=== PATIENT | male | born 2005 | race Two or more races ===

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

== ENCOUNTER 2025-06-15 09:40 | Outpatient (OUT) | payer OTHER, SELFPAY ==
--- NOTE | 2025-06-15 09:44 | XR_ITS ---
The [place] [id number] Patient Name: YAIR MURCIA MRN: [id number] date: 2005 Sex: M Assigned Patient Location: RAD Current Patient Location: [facility] Accession/Order Number: [id number] Exam Date: 06/15/2025 09:50 Report Date: 06/15/2025 10:19 At the request of: LOS RODRIGEZ MD Procedure: XR knee LT 3V LEFT KNEE - 3 views COMPARISON: None CLINICAL DATA: Continued medial left knee pain since falling through [facility] 4 months ago AP, lateral and internal oblique views were obtained. No acute or healing fractures are identified. No dislocation is seen. There is no disproportionate joint space narrowing. There is squaring off of the articular margins at the posterior patella. There is trace amount joint fluid. No soft tissue swelling is seen. XR/XR knee LT 3V IMPRESSION: NO ACUTE BONY FINDINGS. Impression dictated by: Mariah Todd M.D. 06/15/2025 10:19 AM Dictation Location: [place] [address] Electronically authenticated by: [id number] Y Date: 06/15/2025 10:19
--- NOTE | 2025-06-15 09:44 | MR_ITS ---
[address] [address] Patient Name: YAIR MURCIA MRN: [id number] date: 2005 Sex: M Assigned Patient Location: [facility] Current Patient Location: [facility] Accession/Order Number: [id number] Exam Date: 06/15/2025 10:00 Report Date: 06/15/2025 13:39 At the request of: LOS RODRIGEZ MD Procedure: MR knee LT wo con MR knee LT wo con 06/15/2025 11:41 AM SIGNS AND SYMPTOMS: Torn Medial Meniscus PROTOCOL: Multiplanar multisequence MR images of the left knee without IV contrast COMPARISON: None. FINDINGS: Fluid: There is a small joint effusion.. Medial compartment: Medial meniscus: There is a horizontally oriented tear body of the medial meniscus which is nondisplaced. Medial collateral ligament: Intact. Medial femoral condyle cartilage: Preserved. Medial tibial plateau cartilage: Preserved. Lateral compartment: Lateral meniscus: Intact. Lateral collateral ligament: Intact. Lateral femoral condyle cartilage: Preserved. Lateral tibial plateau cartilage: Preserved. Posterolateral corner: Popliteus tendon: Intact. Popliteofibular ligament: Intact. Proximal tibiofibular joint: Preserved. Anterior compartment: Alignment: Normal. Quadriceps tendon: Intact. Patellar tendon: Intact. Retinaculum: Medial intact. Lateral intact. Patellar cartilage: Preserved. There is mild partial thickness chondromalacia along the lateral articular facet of the patella. Trochlea: Preserved.. Plica: None Hoffa fat pad: Normal Intercondylar compartment: Anterior cruciate ligament: Intact. Posterior cruciate ligament: Intact. Bones (other than subarticular marrow): Normal. Muscles: Normal. Vessels: Normal. Nerves: Normal. MR/MR knee LT wo con IMPRESSION: There is a horizontally oriented tear body of the medial meniscus which is nondisplaced. There is a small joint effusion. Mild partial thickness chondromalacia is noted along the lateral articular facet of the patella. Impression dictated by: Dc Wolff M.D. 06/15/2025 1:39 PM Dictation Location: [place] [address] Electronically authenticated by: [id number] Y Date: 06/15/2025 13:39
--- OUTSIDE RECORDS SUMMARY | 2025-06-15 09:44 | XMS_ITS | Clinical Summary ---
Author Organization [facility] Address [address] [place] [address] Care Team Providers Care Filler Spreader Name Role Phone Unavailable Primary Care Provider Unavailabl e Allergies Active AllergyReactionsCriticalityNoted DateCommentsBupropionMental Status Ymazda7303/09/2024 Loss of sleep Medications MedicationSigDispense QuantityRefillsLast FilledStart DateEnd DateStatus magnesium oxide 400 mg magnesium cap Indications:Tinnitus, bilateralTake 1 capsule by mouth once daily. 30 capsule ctive Vit B Cmplx 3-FA-Vit C-Biotin tablet Indications:Tinnitus, bilateralTake 1 tablet by mouth daily with breakfast. 30 tablet ctive Active Problems ProblemNoted DateDiagnosed DateTinnitus, tsbjfdmev62/18/2024 Social History Tobacco UseTypesPacks/DayYears UsedDateSmoking Tobacco: NeverSmokeless Tobacco: Never Tobacco Cessation:Counseling Given: Not Answered Area Deprivation IndexAnswerDate RecordedNational Score (1-100), lower number is lower jnhr388301/10/2024State Score (1-10), lower number is lower vugx05301/10/2024 Data from: https://www.neighborhoodatlas.medicine.[facility].edu/. Last address used for cgpz[address]/10/2024Sex and Gender InformationValueDate RecordedSex Assigned at BirthNot on fileLegal GatZwmi5710/17/2023 11:53 AM EDT Gender IdentityNot on fileSexual OrientationNot on file Plan of Treatment Health MaintenanceDue DateLast DoneCommentsPeds To Adult Transition Initial Umtxpuinzc11/15/2017Peds To Adult Transition Annual Dwoogxclhb29/15/2019HPV Vaccine (1 - Male 3-dose series)2020Meningococcal B Vaccine (1 of 2 - Standard)1Anxiety Nkfqyqnpf65/15/2023epression Irwueadkd52/15/2023HIV Eutyjstzd97/15/2023Hepatitis C Wrjummfjh25/15/2023ovid-19 Vaccine (1 - 2024- season)2025Influenza Vaccine (#1)/07/2006, 06/06/2006 DTaP,Tdap,Td Vaccine (7 - Td or Tdap), 04/05/2011, 11/18/2006, Additional history existsHepatitis B LstlvevMyqoinwao64/08/2006, 2005, 2005 Insurance * Guarantor: Toan Gifford TypeRelation to PatientDate of BirthPhone Billing AddressPersonal/PdneiiEntm2005 [address] [phone]
--- OUTSIDE RECORDS SUMMARY | 2025-06-15 09:44 | XMS_ITS | Clinical Summary ---
Author Organization [facility] Address [address] [place] [address] Care Team Providers Care Knuckler Name Role Phone Han Brambila MD Primary Care Provider [phone] Allergies Active AllergyReactionsCriticalityNoted UntbVtoqvkdqVjhmzvnyw52/06/2023 Other Reaction(s): foggy brain Medications No known medications Active Problems ProblemNoted DateDiagnosed DateRight-sided uqtvaaxd68/06/2023Ear fullness, right 07/10/2023Mass of left parotid gland07/10/2023 Family History Medical HistoryRelationNameCommentsNo Known ProblemsFatherHypertensionMother MelanomaNeg HxRelationNameStatusCommentsFatherAliveMotherAlive Social History Tobacco UseTypesPacks/DayYears UsedDateSmoking Tobacco: NeverSmokeless Tobacco: Never Tobacco Cessation:Counseling Given: Not Answered Alcohol UseStandard Drinks/WeekCommentsNot Currently0 (1 standard drink = 0.6 oz pure alcohol)Sex and Gender InformationValueDate RecordedSex Assigned at Not on fileLegal NwpGifs3410/17/2022 7:35 PM EDTGender IdentityNot on fileSexual OrientationNot on file Last Filed Vital Signs Vital SignReadingTime TakenCommentsBlood Pafgfrxm360/9301 2:43 PM EST Pulse--Temperature--Respiratory Rate--Oxygen Saturation--Inhaled Oxygen Concentration--Dbxzph68 kg (205 lb)09/02/2023 2:43 PM ZFSXfjzxg247.9 cm (6') 09/02/2023 2:43 PM ESTBody Mass Index27.801 2:43 PM EST Plan of Treatment Not on file Insurance Care Teams Team MemberRelationshipSpecialtyStart DateEnd Date Han Brambila MD PCP - GeneralFamily Medicine05/02/23
--- NOTE | 2025-06-15 09:46 | XR_ITS ---
The [address] [address] Patient Name: YAIR MURCIA MRN: [id number] date: 2005 Sex: M Assigned Patient Location: RAD Current Patient Location: [facility] Accession/Order Number: [id number] Exam Date: 06/15/2025 09:50 Report Date: 06/15/2025 10:17 At the request of: LOS RODRIGEZ MD Procedure: XR foreign body eye INO ORBITS FOR FOREIGN BODY - 2 views COMPARISON: 08/19/2023 CLINICAL DATA: Pre-MRI screening Kraus and lateral views were again obtained. No orbital radiopaque foreign bodies are identified. The paranasal sinuses are normally pneumatized no mucosal thickening or fluid levels are noted. No soft tissue swelling is seen. XR/XR foreign body eye INO IMPRESSION: NO EVIDENCE OF RADIOPAQUE ORBITAL FOREIGN BODY. Impression dictated by: Mariah Todd M.D. 06/15/2025 10:17 AM Dictation Location: [place] [address] Electronically authenticated by: [id number] Y Date: 06/15/2025 10:17
== END 2025-06-15 09:41 | disposition home or self-care (01) ==
LOC: RAD 09:40
PROVIDERS: PCP Family Medicine; Visit Provider Family Medicine
DX: S83.242A Other tear of medial meniscus, current injury, left knee, initial encounter (principal)
CPT/HCPCS: 70030; 73562; 73721